=== PATIENT | female | born 1935 | race African-American/Black ===

== ENCOUNTER → 2020-06-19 | Day surgery (SDC) | payer OTHER ==
--- NOTE | 2020-06-20 10:33 | PATH ---
Surgical Pathology Report Patient Name: SUMMER HOLLOWAY [facility]. Rec. #: [id number] /Age/Gender: 1935 (Age: 84) / F Account: [id number] Location: [facility] Taken: 06/19/2020 Received: 06/19/2020 Reported: 06/20/2020 Physicians: Fiorella Shah M.D. Specimen(s) Received A: LEFT BREAST SPECIMEN WITH CALCIFICATIONS B: LEFT BREAST SPECIMEN WITHOUT CALCIFICATIONS Clinical History Nonpalpable lesion Mammographic findings: Microcalcification, suspicious Final Diagnosis A. BREAST, LEFT, WITH CALCIFICATIONS, STEREOTACTIC CORE BIOPSY: FIBROADENOMA WITH ASSOCIATED MICROCALCIFICATIONS. B. BREAST, LEFT, WITHOUT CALCIFICATIONS, STEREOTACTIC CORE BIOPSY: BENIGN BREAST PARENCHYMA. Electronically Signed Radhika Jordan M.D. Gross Description A. Received in formalin labeled "left breast with calcifications," is a 3.5 x 2.5 x 0.3 cm aggregate of multiple burns-yellow, irregular to cylindrical portions of fibroadipose tissue. The formalin is filtered and the specimen is entirely submitted in 2 cassettes. B. Received in formalin labeled "left breast without calcifications," is a 1.5 x 1.1 x 0.2 cm aggregate of multiple burns-yellow, irregular to cylindrical portions of fibroadipose tissue. The formalin is filtered and the specimen is entirely submitted in one cassette. Time to formalin fixation: 5 minutes Total formalin fixation time: Approximately 6 hours. 06/19/2020 [facility]06/19/2020
== END | disposition home or self-care (01) ==
LOC: FMAMMOTONE 13:55
PROVIDERS: ATTEND Family Medicine
PROC: 0HBU3ZX Excision of Left Breast, Percutaneous Approach, Diagnostic (ICD-10-PCS; principal; 2020-06-19)
DX: D24.2 Benign neoplasm of left breast (principal); N64.9 Disorder of breast, unspecified; R92.1 Mammographic calcification found on diagnostic imaging of breast
CPT/HCPCS: 19081; 76098-TC-FY; 87899; 88305-TC; A4648